=== PATIENT | male | born 1970 | race Caucasian/White ===

== ENCOUNTER 2023-02-28 16:05 | Emergency (ER) | payer SELFPAY ==
[~2023-02-28] VITALS: Ht 177.8 cm; Wt 95.5 kg
[2023-02-28 19:40] VITALS: BP 126/85; PULSE 72; TEMP 98.5
== END 2023-02-28 19:40 | disposition home or self-care (01) ==
LOC: COL.ER 16:05
DX: S59.202A Unspecified physeal fracture of lower end of radius, left arm, initial encounter for closed fracture (principal); S70.02XA Contusion of left hip, initial encounter; S30.811A Abrasion of abdominal wall, initial encounter; W17.89XA Other fall from one level to another, initial encounter
CPT/HCPCS: J2704; J3010; J7030